=== PATIENT | female | born 1975 | race Caucasian/White ===

== ENCOUNTER 2021-09-07 18:13 | Emergency (ER) | payer BC, MEDICAID ==
[2021-09-07] MEDS ORDERED: Ondansetron 4 MG Tab.DIS PO ONE (19:19)
[2021-09-07] MEDS ORDERED: Alum Hydrox/Mag Hydrox/Simeth 15 ML, Lidocaine 2% 15 ML PO ONE ×2 (19:29)
== END 2021-09-07 20:50 ==
LOC: JP.ED 18:13
DX: T18.198A Other foreign object in esophagus causing other injury, initial encounter (principal); Z88.2 Allergy status to sulfonamides; Z20.822 Contact with and (suspected) exposure to COVID-19
CPT/HCPCS: 70360; 71045; 99284; 99285-25; A9270-GY; Q0162; U0002

== ENCOUNTER 2021-10-16 08:59 | Day surgery (SDC) | payer MEDICAID ==
[2021-10-16] MEDS ORDERED: fentaNYL 100 MCG/2 ML SDV ONE (09:39)
[2021-10-16] MEDS ORDERED: Propofol 200 MG/20 ML SDV ONE ×2 (09:39→11:37)
[2021-10-16] MEDS ORDERED: Midazolam 1 MG/ML 2 ML SDV ONE (09:39)
[2021-10-16] MEDS ORDERED: Lactated Ringers 1,000 ML IV SCH (09:45)
== END 2021-10-16 12:54 | disposition home or self-care (01) ==
LOC: JP.SDS 08:59
PROVIDERS: ATTEND Family Medicine
DX: D12.8 Benign neoplasm of rectum (principal); E66.9 Obesity, unspecified; Z88.2 Allergy status to sulfonamides; Z88.8 Allergy status to other drugs, medicaments and biological substances
CPT/HCPCS: 45380; J2250; J2704; J3010; J7120; 88305